=== PATIENT | female | born 1985 | race Caucasian/White ===

== ENCOUNTER 2020-06-23 12:37 | Emergency (ER) | payer MEDICAID, OTHER ==
[~2020-06-23] VITALS: Ht 157.5 cm; Wt 90.0 kg
[~2020-06-23 12:37] MED LIST: PREN-88 PO
[2020-06-23] MEDS ORDERED: IBUPROFEN 600MG TABLET PO STA (12:59)
[2020-06-23 13:13] VITALS: BP 135/97
== END 2020-06-23 13:53 | disposition home or self-care (01) ==
LOC: ER 12:37
DX: K08.89 Other specified disorders of teeth and supporting structures (principal); K02.9 Dental caries, unspecified
CPT/HCPCS: 99283

== ENCOUNTER 2020-11-03 15:08 | Emergency (ER) | payer MEDICAID, OTHER ==
[~2020-11-03] VITALS: Ht 157.5 cm; Wt 91.0 kg
[2020-11-03 15:14] VITALS: BP 113/60
[2020-11-03] MEDS ORDERED: ACETAMINOPHEN 325MG TABLET PO ONE (15:30)
[2020-11-03] MEDS ORDERED: SULF1TAB48 MT (15:35)
[2020-11-03] MEDS ORDERED: CEPH500T MT (15:35)
== END 2020-11-03 15:49 | disposition home or self-care (01) ==
LOC: ER 15:25
DX: L02.415 Cutaneous abscess of right lower limb (principal); Z86.73 Personal history of transient ischemic attack (TIA), and cerebral infarction without residual deficits; Z98.890 Other specified postprocedural states
CPT/HCPCS: 99283

== ENCOUNTER 2020-11-10 21:30 | Emergency (ER) | payer OTHER ==
[~2020-11-10] VITALS: Ht 157.5 cm; Wt 87.7 kg
[~2020-11-10 21:30] MED LIST changes: +CEPH500T MT; -PREN-88 PO; +SULF1TAB48 MT
[2020-11-10 22:17] LABS: BASOPHILS % 0.8 % (0.0-2.0); EOSINOPHILS % 1.9 % (0.0-5.0); HEMATOCRIT. 38.1 % (36.0-48.0); HEMOGLOBIN. 13.2 g/dL (12.0-16.0); LYMPHOCYTES % 24.7 % (20.0-50.0); MEAN CORPUSCULAR HEMOGLOBIN 31.2 pg (28.0-32.0); MEAN CORPUSCULAR VOLUME 90.3 fL (81.0-99.0); MEAN PLATELET VOLUME 8.3 fl (7.4-10.4); MONOCYTES % 5.7 % (2.0-8.0); NEUTROPHILS % 66.9 % (40.0-76.0); PLATELET 336 x1000/uL (130-400); RED BLOOD CELL COUNT 4.22 mill/uL (4.2-5.4); RED CELL DISTRIBUTION WIDTH 15.5 % (11.6-14.6)
[2020-11-10 22:19] LABS: CHLORIDE 109 mEq/L (98-107)
[2020-11-10 22:24] LABS: HCG SCREEN NEGATIVE
[2020-11-11 00:28] VITALS: BP 115/58
== END 2020-11-11 00:27 | disposition home or self-care (01) ==
LOC: ER 21:30
DX: R20.2 Paresthesia of skin (principal); J45.909 Unspecified asthma, uncomplicated; Z86.73 Personal history of transient ischemic attack (TIA), and cerebral infarction without residual deficits
CPT/HCPCS: 36415; 80053; 84703; 85025; 93005; 99285

== ENCOUNTER 2022-01-16 22:41 | Emergency (ER) | payer MEDICAID, OTHER ==
[~2022-01-16] VITALS: Ht 157.5 cm; Wt 82.0 kg
[2022-01-16 23:10] VITALS: BP 116/57
[2022-01-17 00:56] LABS: CLARITY URINE CLEAR (CLEAR); COLOR URINE YELLOW (YELLOW); KETONES URINE NEGATIVE (NEGATIVE); LEUKOCYTE ESTERASE URINE NEGATIVE (NEGATIVE); NITRITE URINE NEGATIVE (NEGATIVE); OCCULT BLOOD URINE NEGATIVE (NEGATIVE); PROTEIN URINE NEGATIVE (NEGATIVE); SPECIFIC GRAVITY URINE 1.025 (1.005-1.030); UROBILINOGEN URINE 0.2 E.U./dL (0.2-1.0)
[2022-01-17 01:53] LABS: *BARBITURATES SCREEN URINE NEGATIVE (NEGATIVE); *BENZODIAZEPINES SCREEN URINE NEGATIVE (NEGATIVE); *COCAINE SCREEN URINE NEGATIVE (NEGATIVE); CANNABINOID URINE SCREEN NEGATIVE (NEGATIVE); METHADONE URINE SCREEN NEGATIVE (NEGATIVE); OPIATES URINE SCREEN NEGATIVE (NEGATIVE); PHENCYCLIDINE URINE SCREEN NEGATIVE (NEGATIVE)
[2022-01-17 02:06] LABS: *AMPHETAMINES SCREEN URINE PRESUMTIVE POSITIVE (NEGATIVE)
== END 2022-01-17 02:25 | disposition home or self-care (01) ==
LOC: ER 22:41
DX: F15.10 Other stimulant abuse, uncomplicated (principal); Z59.00 Homelessness unspecified; J45.909 Unspecified asthma, uncomplicated; Z86.73 Personal history of transient ischemic attack (TIA), and cerebral infarction without residual deficits; Z98.890 Other specified postprocedural states
CPT/HCPCS: 80305; 81003; 81025; 82962; 99283

== ENCOUNTER 2022-02-07 22:25 | Emergency (ER) | payer OTHER | END 2022-02-07 22:56 | disposition left against medical advice (07) | LOC: ER 22:25 | DX: Z53.21 Procedure and treatment not carried out due to patient leaving prior to being seen by health care provider (principal) ==

== ENCOUNTER 2022-04-21 03:39 | Emergency (ER) | payer OTHER ==
[~2022-04-21] VITALS: Ht 157.5 cm; Wt 78.4 kg
[2022-04-21 03:50] VITALS: BP 115/59
[2022-04-21] MEDS ORDERED: D-ME473S50 PO (14:58)
[2022-04-21] MEDS ORDERED: NAPR-681 PO (14:58)
== END 2022-04-21 07:00 | disposition left against medical advice (07) ==
LOC: ER 03:39
DX: Z53.21 Procedure and treatment not carried out due to patient leaving prior to being seen by health care provider (principal)

== ENCOUNTER 2022-04-21 09:16 | Emergency (ER) | payer MEDICAID, OTHER ==
[~2022-04-21] VITALS: Ht 165.1 cm; Wt 78.0 kg
[2022-04-21 09:30] VITALS: BP 111/75
[2022-04-21] MEDS ORDERED: IBUPROFEN 600MG TABLET PO STA (11:04)
[2022-04-21] MEDS ORDERED: ONDANSETRON 4MG ODT PO STA (11:04)
[2022-04-21 12:04] LABS: BASOPHILS % 0.6 % (0.0-2.0); EOSINOPHILS % 0.9 % (0.0-5.0); HEMATOCRIT. 39.5 % (36.0-48.0); HEMOGLOBIN. 13.3 g/dL (12.0-16.0); LYMPHOCYTES % 17.6 % (20.0-50.0); MEAN CORPUSCULAR HEMOGLOBIN 30.3 pg (28.0-32.0); MEAN CORPUSCULAR VOLUME 90.3 fL (81.0-99.0); MEAN PLATELET VOLUME 7.5 fl (7.4-10.4); MONOCYTES % 6.2 % (2.0-8.0); NEUTROPHILS % 74.7 % (40.0-76.0); PLATELET 342 x1000/uL (130-400); RED BLOOD CELL COUNT 4.38 mill/uL (4.2-5.4); RED CELL DISTRIBUTION WIDTH 14.3 % (11.6-14.6)
[2022-04-21 12:16] LABS: CHLORIDE 105 mEq/L (98-107)
[2022-04-21 13:23] LABS: CLARITY URINE CLEAR (CLEAR); COLOR URINE YELLOW (YELLOW); KETONES URINE 3+ (NEGATIVE); LEUKOCYTE ESTERASE URINE NEGATIVE (NEGATIVE); NITRITE URINE NEGATIVE (NEGATIVE); OCCULT BLOOD URINE 1+ (NEGATIVE); PH URINE 5.5 (4.5-8.0); PROTEIN URINE TRACE (NEGATIVE); SPECIFIC GRAVITY URINE 1.032 (1.005-1.030)
[2022-04-21] MEDS ORDERED: NAPR-681 PO (14:58)
[2022-04-21] MEDS ORDERED: D-ME473S50 PO (14:58)
== END 2022-04-21 15:26 | disposition home or self-care (01) ==
LOC: ER 09:16
DX: B34.9 Viral infection, unspecified (principal); Z20.822 Contact with and (suspected) exposure to COVID-19
CPT/HCPCS: 36415; 71045; 80053; 81003; 81025; 85025; 87426; 99284; Q0162

== ENCOUNTER 2022-07-15 01:00 | Emergency (ER) | payer MEDICAID, OTHER ==
[~2022-07-15] VITALS: Ht 157.5 cm; Wt 82.0 kg
[~2022-07-15 01:00] MED LIST changes: +D-ME473S50 PO; +NAPR-681 PO
[2022-07-15 01:05] VITALS: BP 112/49
[2022-07-15 02:04] LABS: BASOPHILS % 0.8 % (0.0-2.0); EOSINOPHILS % 2.2 % (0.0-5.0); HEMATOCRIT. 37.8 % (36.0-48.0); HEMOGLOBIN. 12.7 g/dL (12.0-16.0); LYMPHOCYTES % 27.7 % (20.0-50.0); MEAN CORPUSCULAR HEMOGLOBIN 30.3 pg (28.0-32.0); MEAN CORPUSCULAR VOLUME 90.6 fL (81.0-99.0); MEAN PLATELET VOLUME 7.5 fl (7.4-10.4); MONOCYTES % 6.9 % (2.0-8.0); NEUTROPHILS % 62.4 % (40.0-76.0); PLATELET 316 x1000/uL (130-400); RED BLOOD CELL COUNT 4.17 mill/uL (4.2-5.4); RED CELL DISTRIBUTION WIDTH 14.7 % (11.6-14.6)
[2022-07-15 02:11] LABS: CHLORIDE 108 mEq/L (98-107)
[2022-07-15] MEDS ORDERED: TOPUD PO (11:12)
== END 2022-07-15 03:00 | disposition home or self-care (01) ==
LOC: ER 01:00
DX: R07.9 Chest pain, unspecified (principal)
CPT/HCPCS: 36415; 71045; 80053; 84484; 85025; 93005; 99285

== ENCOUNTER 2022-07-15 05:09 | Emergency (ER) | payer MEDICAID, OTHER ==
[~2022-07-15] VITALS: Ht 162.6 cm; Wt 82.0 kg
[2022-07-15 05:56] VITALS: BP 117/69
[2022-07-15 10:08] LABS: BASOPHILS % 1.7 % (0.0-2.0); EOSINOPHILS % 2.3 % (0.0-5.0); HEMATOCRIT. 41.6 % (36.0-48.0); HEMOGLOBIN. 13.5 g/dL (12.0-16.0); LYMPHOCYTES % 26.5 % (20.0-50.0); MEAN CORPUSCULAR HEMOGLOBIN 29.7 pg (28.0-32.0); MEAN CORPUSCULAR VOLUME 91.9 fL (81.0-99.0); MEAN PLATELET VOLUME 7.9 fl (7.4-10.4); MONOCYTES % 5.2 % (2.0-8.0); NEUTROPHILS % 64.3 % (40.0-76.0); PLATELET 285 x1000/uL (130-400); RED BLOOD CELL COUNT 4.53 mill/uL (4.2-5.4); RED CELL DISTRIBUTION WIDTH 14.7 % (11.6-14.6)
[2022-07-15 10:14] LABS: CHLORIDE 107 mEq/L (98-107)
[2022-07-15] MEDS ORDERED: TOPUD PO (11:12)
== END 2022-07-15 12:35 | disposition home or self-care (01) ==
LOC: ER 05:09
DX: R07.9 Chest pain, unspecified (principal)
CPT/HCPCS: 36415; 80053; 83880; 84484; 85025; 99283

== ENCOUNTER 2022-08-20 00:44 | Emergency (ER) | payer MEDICAID, OTHER ==
[~2022-08-20] VITALS: Ht 157.5 cm; Wt 81.2 kg
[~2022-08-20 00:44] MED LIST changes: +TOPUD PO
[2022-08-20 00:55] VITALS: BP 124/59
[2022-08-21 12:56] LABS: BASOPHILS % 0.6 % (0.0-2.0); EOSINOPHILS % 1.3 % (0.0-5.0); HEMATOCRIT. 39.9 % (36.0-48.0); LYMPHOCYTES % 24.6 % (20.0-50.0); MEAN CORPUSCULAR HEMOGLOBIN 29.6 pg (28.0-32.0); MEAN CORPUSCULAR VOLUME 91.3 fL (81.0-99.0); MEAN PLATELET VOLUME 7.2 fl (7.4-10.4); MONOCYTES % 6.1 % (2.0-8.0); NEUTROPHILS % 67.4 % (40.0-76.0); PLATELET 292 x1000/uL (130-400); RED BLOOD CELL COUNT 4.37 mill/uL (4.2-5.4); RED CELL DISTRIBUTION WIDTH 14.4 % (11.6-14.6)
[2022-08-21 12:59] LABS: CHLORIDE 109 mEq/L (98-107)
== END 2022-08-21 15:42 | disposition home or self-care (01) ==
LOC: ER 00:44
DX: R53.83 Other fatigue (principal); E86.0 Dehydration; D64.9 Anemia, unspecified; E87.8 Other disorders of electrolyte and fluid balance, not elsewhere classified; Z98.890 Other specified postprocedural states
CPT/HCPCS: 36415; 80048; 81025; 85025; 99283

== ENCOUNTER 2022-12-19 09:37 | Emergency (ER) | payer MEDICAID ==
[~2022-12-19] VITALS: Ht 157.5 cm; Wt 72.7 kg
[2022-12-19 09:51] VITALS: BP 110/57; RESP 18; TEMP 98.7; O2SAT 98
[2022-12-19 10:03] VITALS: PULSE 93
== END 2022-12-19 15:56 | disposition left against medical advice (07) ==
LOC: ER 09:37
DX: Z53.21 Procedure and treatment not carried out due to patient leaving prior to being seen by health care provider (principal)
CPT/HCPCS: 99281

== ENCOUNTER 2022-12-25 19:30 | Emergency (ER) | payer MEDICAID, OTHER ==
[~2022-12-25] VITALS: Ht 157.5 cm; Wt 82.0 kg
[2022-12-25 20:06] VITALS: BP 126/64; O2SAT 100
[2022-12-25 20:56] LABS: BASOPHILS % 0.4 % (0.0-2.0); EOSINOPHILS % 0.6 % (0.0-5.0); HEMATOCRIT. 35.4 % (36.0-48.0); HEMOGLOBIN. 11.6 g/dL (12.0-16.0); LYMPHOCYTES % 15.2 % (20.0-50.0); MEAN CORPUSCULAR HEMOGLOBIN 30.5 pg (28.0-32.0); MEAN CORPUSCULAR VOLUME 93.2 fL (81.0-99.0); MEAN PLATELET VOLUME 6.9 fl (7.4-10.4); MONOCYTES % 5.5 % (2.0-8.0); NEUTROPHILS % 78.3 % (40.0-76.0); PLATELET 377 x1000/uL (130-400); RED CELL DISTRIBUTION WIDTH 13.3 % (11.6-14.6)
[2022-12-25 21:03] LABS: CHLORIDE 107 mEq/L (98-107)
[2022-12-25 21:09] LABS: HCG SCREEN NEGATIVE
[2022-12-26] MEDS ORDERED: LIDOCAINE HCL 1% 20ML VIAL (Pyxis) INJ INFIL ONE (03:15)
[2022-12-26] MEDS ORDERED: CEFTRIAXONE SODIUM 500 MG/VIAL IM ONE (03:15)
[2022-12-26] MEDS ORDERED: DOXY100C5 MT (03:40)
[2022-12-26] MEDS ORDERED: METR-167 MT (03:40)
[2022-12-26 03:52] VITALS: PULSE 72; RESP 18; TEMP 98.7
[2022-12-26 04:15] LABS: CLARITY URINE CLEAR (CLEAR); COLOR URINE YELLOW (YELLOW); KETONES URINE NEGATIVE (NEGATIVE); LEUKOCYTE ESTERASE URINE NEGATIVE (NEGATIVE); NITRITE URINE NEGATIVE (NEGATIVE); OCCULT BLOOD URINE 1+ (NEGATIVE); PROTEIN URINE NEGATIVE (NEGATIVE); UROBILINOGEN URINE 0.2 E.U./dL (0.2-1.0)
== END 2022-12-26 03:53 | disposition home or self-care (01) ==
LOC: ER 19:30
DX: N93.8 Other specified abnormal uterine and vaginal bleeding (principal); N70.93 Salpingitis and oophoritis, unspecified; J45.909 Unspecified asthma, uncomplicated; Z98.890 Other specified postprocedural states; Z79.899 Other long term (current) drug therapy
CPT/HCPCS: 99285; 80053; 81025; 84703; 85025; 86850; 86900; 86901; 36415; 76830; 76856; 81003; 96372; J0696

== ENCOUNTER 2022-12-30 01:10 | Emergency (ER) | payer MEDICAID ==
[~2022-12-30] VITALS: Ht 157.5 cm; Wt 80.0 kg
[~2022-12-30 01:10] MED LIST changes: +DOXY100C5 MT; +METR-167 MT
[2022-12-30 02:19] VITALS: BP 138/87; RESP 14; TEMP 98.2; O2SAT 99
[2022-12-30 02:25] VITALS: PULSE 69
== END 2022-12-30 04:05 | disposition left against medical advice (07) ==
LOC: ER 01:10
DX: Z53.21 Procedure and treatment not carried out due to patient leaving prior to being seen by health care provider (principal); M79.671 Pain in right foot; J45.909 Unspecified asthma, uncomplicated; Z98.890 Other specified postprocedural states
CPT/HCPCS: 81025; 99281

== ENCOUNTER 2023-04-14 22:16 | Emergency (ER) | payer MEDICAID ==
[~2023-04-14] VITALS: Ht 157.5 cm; Wt 77.6 kg
[2023-04-14 22:27] VITALS: BP 124/76; TEMP 98.4; O2SAT 98
[2023-04-14 22:34] VITALS: PULSE 85; RESP 20
== END 2023-04-14 23:06 | disposition home or self-care (01) ==
LOC: ER 22:16
DX: K62.89 Other specified diseases of anus and rectum (principal); J45.909 Unspecified asthma, uncomplicated; Z98.890 Other specified postprocedural states
CPT/HCPCS: 99281

== ENCOUNTER 2023-05-02 10:01 | Emergency (ER) | payer MEDICAID ==
[~2023-05-02] VITALS: Ht 157.5 cm; Wt 74.9 kg
[2023-05-02 10:14] VITALS: O2SAT 100
[2023-05-02 13:04] LABS: CLARITY URINE CLEAR (CLEAR); COLOR URINE YELLOW (YELLOW); GLUCOSE URINE NEGATIVE (NEGATIVE); KETONES URINE TRACE (NEGATIVE); LEUKOCYTE ESTERASE URINE NEGATIVE (NEGATIVE); NITRITE URINE NEGATIVE (NEGATIVE); OCCULT BLOOD URINE NEGATIVE (NEGATIVE); PH URINE 5.5 (4.5-8.0); PROTEIN URINE NEGATIVE (NEGATIVE); SPECIFIC GRAVITY URINE 1.034 (1.005-1.030); UROBILINOGEN URINE 0.2 E.U./dL (0.2-1.0)
[2023-05-02] MEDS ORDERED: TOPUD MT (13:04)
[2023-05-02 13:26] VITALS: BP 146/68; PULSE 69; RESP 18; TEMP 98.8
== END 2023-05-02 13:27 | disposition home or self-care (01) ==
LOC: ER 10:01
DX: Z32.02 Encounter for pregnancy test, result negative (principal)
CPT/HCPCS: 81003; 81025; 99283

== ENCOUNTER 2023-07-18 23:56 | Emergency (ER) | payer MEDICAID ==
[~2023-07-18] VITALS: Ht 157.5 cm; Wt 77.0 kg
[~2023-07-18 23:56] MED LIST changes: +TOPUD MT
[2023-07-19 00:20] VITALS: TEMP 98; O2SAT 98
[2023-07-19 02:38] LABS: BASOPHILS % 1.2 % (0.0-2.0); EOSINOPHILS % 1.9 % (0.0-5.0); HEMATOCRIT. 37.3 % (36.0-48.0); HEMOGLOBIN. 12.6 g/dL (12.0-16.0); LYMPHOCYTES % 30.1 % (20.0-50.0); MEAN CORPUSCULAR HEMOGLOBIN 30.7 pg (28.0-32.0); MEAN CORPUSCULAR HGB CONC 33.8 g/dL (31.0-37.0); MEAN PLATELET VOLUME 7.4 fl (7.4-10.4); NEUTROPHILS % 59.8 % (40.0-76.0); PLATELET 333 x1000/uL (130-400); RED CELL DISTRIBUTION WIDTH 15.2 % (11.6-14.6)
[2023-07-19 02:56] LABS: ALANINE AMINOTRANSFERASE 11 IU/L (10-49); ALBUMIN 4.9 g/dL (3.2-4.8); ASPARTATE AMINOTRANSFERASE 18 IU/L (<34); BILIRUBIN TOTAL 0.3 mg/dL (0.1-1.0); CALCIUM 9.9 mg/dL (8.7-10.4); CARBON DIOXIDE 28 mEq/L (21-32); CHLORIDE 105 mEq/L (98-107); CREATININE 0.5 mg/dL (0.6-1.0); GLUCOSE 92 mg/dL (70-105); PROTEIN TOTAL 8.1 g/dL (6.0-8.3); SODIUM 138 mEq/L (136-145); UREA NITROGEN BLOOD 10 mg/dL (9-23)
[2023-07-19 03:00] LABS: B-HCG QUANTITATIVE < 1 mIU/mL (<3)
[2023-07-19 06:23] VITALS: BP 133/70; PULSE 75; RESP 20
== END 2023-07-19 06:26 | disposition home or self-care (01) ==
LOC: ER 23:56
DX: O26.851 Spotting complicating pregnancy, first trimester (principal); Z3A.01 Less than 8 weeks gestation of pregnancy
CPT/HCPCS: 99284; 80053; 84702; 85025; 86850; 86900; 86901; 36415; 76830; 76856; Z7610 ×2

== ENCOUNTER 2023-10-22 00:03 | Emergency (ER) | payer MEDICAID ==
[~2023-10-22] VITALS: Ht 157.5 cm; Wt 75.8 kg
[2023-10-22 00:30] VITALS: BP 113/50; PULSE 71; RESP 16; TEMP 98.6; O2SAT 100
[2023-10-22 00:56] LABS: BASOPHILS % 0.8 % (0.0-2.0); EOSINOPHILS % 1.9 % (0.0-5.0); HEMATOCRIT. 34.8 % (36.0-48.0); HEMOGLOBIN. 11.7 g/dL (12.0-16.0); MEAN CORPUSCULAR HEMOGLOBIN 30.9 pg (28.0-32.0); MEAN CORPUSCULAR HGB CONC 33.5 g/dL (31.0-37.0); MEAN CORPUSCULAR VOLUME 92.3 fL (81.0-99.0); MEAN PLATELET VOLUME 7.3 fl (7.4-10.4); MONOCYTES % 6.5 % (2.0-8.0); NEUTROPHILS % 61.8 % (40.0-76.0); PLATELET 348 x1000/uL (130-400); RED BLOOD CELL COUNT 3.77 mill/uL (4.2-5.4); RED CELL DISTRIBUTION WIDTH 14.6 % (11.6-14.6); WHITE BLOOD COUNT 5.9 x1000/uL (4.5-11.0)
[2023-10-22 01:07] LABS: CHLORIDE 106 mEq/L (98-107); POTASSIUM 3.7 mEq/L (3.5-5.1); SODIUM 138 mEq/L (136-145)
[2023-10-22 01:08] LABS: CALCIUM 9.7 mg/dL (8.7-10.4); CARBON DIOXIDE 27 mEq/L (21-32)
[2023-10-22 01:13] LABS: CREATININE 0.6 mg/dL (0.6-1.0); GLUCOSE 90 mg/dL (70-105); UREA NITROGEN BLOOD 15 mg/dL (9-23)
[2023-10-22 01:15] LABS: ACETAMINOPHEN < 2 ug/mL (10-30)
[2023-10-22 01:41] LABS: B-HCG QUANTITATIVE 2 mIU/mL (<3); ETHANOL BLOOD < 10 mg/dL (<10)
== END 2023-10-22 03:16 | disposition home or self-care (01) ==
LOC: ER 00:14
DX: B34.9 Viral infection, unspecified (principal); Z20.822 Contact with and (suspected) exposure to COVID-19
CPT/HCPCS: 36415; 76830; 76856; 80048; 80307; 80320; 80329; 81025; 84702; 85025; 86850; 86900; 87426; 99284; G0480

== ENCOUNTER 2024-04-27 11:17 | Emergency (ER) | payer MEDICAID ==
[~2024-04-27] VITALS: Ht 157.5 cm; Wt 77.0 kg
[2024-04-27 11:22] VITALS: TEMP 97.9; O2SAT 100
[2024-04-27] MEDS: CEFTRIAXONE SODIUM 500MG VIAL IM ONE (12:02)
[2024-04-27 12:30] LABS: CLARITY URINE CLEAR (CLEAR); COLOR URINE YELLOW (YELLOW); GLUCOSE URINE NEGATIVE (NEGATIVE); KETONES URINE NEGATIVE (NEGATIVE); LEUKOCYTE ESTERASE URINE 2+ (NEGATIVE); NITRITE URINE NEGATIVE (NEGATIVE); OCCULT BLOOD URINE NEGATIVE (NEGATIVE); PROTEIN URINE NEGATIVE (NEGATIVE); SPECIFIC GRAVITY URINE 1.023 (1.005-1.030)
[2024-04-27 12:47] LABS: MUCUS URINE TRACE /lpf (< = 2+); SQUAMOUS EPITHELIAL CELL URINE 1+ /lpf (RARE/1+)
[2024-04-27 12:48] LABS: BACTERIA URINE 1+
[2024-04-27 12:49] LABS: WBC URINE 0-2 /hpf (0-2)
[2024-04-27] MEDS ORDERED: DOXY100C5 MT (13:03)
[2024-04-27] MEDS ORDERED: METR-167 MT (13:03)
[2024-04-27 13:46] VITALS: BP 140/69; PULSE 71; RESP 19; O2SAT 100
[2024-04-30 06:11] LABS: CHLAMYDIA TRACHOMATIS NAA Negative (Negative); NEISSERIA GONORRHOEAE NAA Negative (Negative)
== END 2024-04-27 13:47 | disposition home or self-care (01) ==
LOC: ER 11:17
DX: N76.0 Acute vaginitis (principal); B96.89 Other specified bacterial agents as the cause of diseases classified elsewhere; J45.909 Unspecified asthma, uncomplicated; Z79.899 Other long term (current) drug therapy
CPT/HCPCS: 87491; 87591; 81003; 81025; 96372; 99283; J0696; Z7610

== ENCOUNTER 2024-05-03 08:06 | Emergency (ER) | payer MEDICAID ==
[~2024-05-03] VITALS: Ht 157.5 cm; Wt 77.1 kg
[2024-05-03 08:10] VITALS: O2SAT 100
[2024-05-03 08:47] LABS: GLUCOSE URINE NEGATIVE (NEGATIVE); KETONES URINE TRACE (NEGATIVE)
[2024-05-03 08:56] LABS: BASOPHILS % 0.5 % (0.0-2.0); EOSINOPHILS % 0.9 % (0.0-5.0); HEMOGLOBIN. 12.5 g/dL (12.0-16.0); LYMPHOCYTES % 20.3 % (20.0-50.0); MEAN CORPUSCULAR HEMOGLOBIN 31.1 pg (28.0-32.0); MEAN CORPUSCULAR HGB CONC 33.9 g/dL (31.0-37.0); MEAN CORPUSCULAR VOLUME 91.8 fL (81.0-99.0); MEAN PLATELET VOLUME 6.9 fl (7.4-10.4); MONOCYTES % 5.1 % (2.0-8.0); NEUTROPHILS % 73.2 % (40.0-76.0); PLATELET 369 x1000/uL (130-400); RED BLOOD CELL COUNT 4.03 mill/uL (4.2-5.4); RED CELL DISTRIBUTION WIDTH 14.7 % (11.6-14.6); WHITE BLOOD COUNT 7.4 x1000/uL (4.5-11.0)
[2024-05-03 09:05] LABS: CLARITY URINE CLEAR (CLEAR); COLOR URINE YELLOW (YELLOW); PROTEIN URINE TRACE (NEGATIVE); SPECIFIC GRAVITY URINE 1.025 (1.005-1.030)
[2024-05-03 09:06] LABS: LEUKOCYTE ESTERASE URINE 1+ (NEGATIVE); NITRITE URINE NEGATIVE (NEGATIVE); OCCULT BLOOD URINE NEGATIVE (NEGATIVE)
[2024-05-03 09:08] LABS: BACTERIA URINE FEW; RBC URINE 0-2 /hpf (0-2); SQUAMOUS EPITHELIAL CELL URINE 1+ /lpf (RARE/1+); WBC URINE 0-2 /hpf (0-2); YEAST URINE NONE SEEN
[2024-05-03 09:09] LABS: CHLORIDE 103 mEq/L (98-107); POTASSIUM 3.6 mEq/L (3.5-5.1); SODIUM 137 mEq/L (136-145)
[2024-05-03 09:10] LABS: CALCIUM 9.9 mg/dL (8.7-10.4); CARBON DIOXIDE 29 mEq/L (21-32)
[2024-05-03 09:15] LABS: CREATININE 0.6 mg/dL (0.6-1.0); GLUCOSE 94 mg/dL (70-105); UREA NITROGEN BLOOD 9 mg/dL (9-23)
[2024-05-03 09:38] LABS: TROPONIN I HIGH SENSITIVITY < 4 ng/L (3.0-34)
[2024-05-03 10:12] LABS: HCG SCREEN NEGATIVE
[2024-05-03 11:11] VITALS: BP 145/78; PULSE 77; RESP 14; TEMP 36.72516; O2SAT 100
== END 2024-05-03 11:14 | disposition home or self-care (01) ==
LOC: ER 08:06
DX: R07.89 Other chest pain (principal); R42 Dizziness and giddiness; J45.909 Unspecified asthma, uncomplicated; Z79.899 Other long term (current) drug therapy
CPT/HCPCS: 36415; 71045; 80048; 81003; 81025; 84484; 84703; 85025; 93005; 99285

== ENCOUNTER 2024-05-25 22:54 | Emergency (ER) | payer MEDICAID ==
[~2024-05-25] VITALS: Ht 157.5 cm; Wt 82.0 kg
[2024-05-25 22:59] VITALS: BP 123/66; RESP 18; TEMP 98; O2SAT 98
[2024-05-25 23:02] VITALS: PULSE 88; O2SAT 100
== END 2024-05-26 01:03 | disposition home or self-care (01) ==
LOC: ER 22:54
DX: Z32.02 Encounter for pregnancy test, result negative (principal); J45.909 Unspecified asthma, uncomplicated; Z98.890 Other specified postprocedural states
CPT/HCPCS: 81025; 99282

== ENCOUNTER 2024-06-04 01:20 | Emergency (ER) | payer MEDICAID ==
[~2024-06-04] VITALS: Ht 157.5 cm; Wt 81.0 kg
[2024-06-04 02:00] VITALS: BP 138/50; PULSE 84; RESP 16; TEMP 98.2; O2SAT 100
[2024-06-04] MEDS: CEFTRIAXONE SODIUM 500MG VIAL IM ONE (02:15)
[2024-06-04 05:16] LABS: CLARITY URINE CLEAR (CLEAR); COLOR URINE DARK YELLOW (YELLOW); GLUCOSE URINE NEGATIVE (NEGATIVE); KETONES URINE 2+ (NEGATIVE); LEUKOCYTE ESTERASE URINE 2+ (NEGATIVE); NITRITE URINE NEGATIVE (NEGATIVE); OCCULT BLOOD URINE NEGATIVE (NEGATIVE); PH URINE 5.5 (4.5-8.0); PROTEIN URINE TRACE (NEGATIVE); SPECIFIC GRAVITY URINE 1.034 (1.005-1.030)
[2024-06-04] MEDS ORDERED: CEPH500T MT (05:29)
[2024-06-04] MEDS: CEFTRIAXONE SODIUM 500MG VIAL IM NR (06:15)
[2024-06-04 07:05] LABS: SQUAMOUS EPITHELIAL CELL URINE 2+ /lpf (RARE/1+)
[2024-06-04 07:10] LABS: BACTERIA URINE TRACE
[2024-06-07 04:07] LABS: CHLAMYDIA TRACHOMATIS NAA Negative (Negative); NEISSERIA GONORRHOEAE NAA Negative (Negative)
== END 2024-06-04 03:50 | disposition home or self-care (01) ==
LOC: ER 01:20
DX: N76.0 Acute vaginitis (principal); B96.89 Other specified bacterial agents as the cause of diseases classified elsewhere; J45.909 Unspecified asthma, uncomplicated; Z86.73 Personal history of transient ischemic attack (TIA), and cerebral infarction without residual deficits; Z98.890 Other specified postprocedural states
CPT/HCPCS: 99283; 87491; 87591; 81003; 87086; 96372; J0696

== ENCOUNTER 2024-08-06 06:54 | Emergency (ER) | payer MEDICAID ==
[~2024-08-06] VITALS: Ht 157.5 cm; Wt 76.4 kg
[2024-08-06 06:58] VITALS: O2SAT 99
[2024-08-06 07:36] LABS: BASOPHILS % 0.5 % (0.0-2.0); EOSINOPHILS % 1.1 % (0.0-5.0); HEMATOCRIT. 38.2 % (36.0-48.0); HEMOGLOBIN. 12.6 g/dL (12.0-16.0); LYMPHOCYTES % 17.5 % (20.0-50.0); MEAN CORPUSCULAR HEMOGLOBIN 29.5 pg (28.0-32.0); MEAN CORPUSCULAR HGB CONC 32.9 g/dL (31.0-37.0); MEAN CORPUSCULAR VOLUME 89.7 fL (81.0-99.0); MEAN PLATELET VOLUME 7.2 fl (7.4-10.4); MONOCYTES % 5.4 % (2.0-8.0); NEUTROPHILS % 75.5 % (40.0-76.0); PLATELET 386 x1000/uL (130-400); RED BLOOD CELL COUNT 4.25 mill/uL (4.2-5.4); RED CELL DISTRIBUTION WIDTH 15.2 % (11.6-14.6); WHITE BLOOD COUNT 7.1 x1000/uL (4.5-11.0)
[2024-08-06 07:44] LABS: CHLORIDE 105 mEq/L (98-107); POTASSIUM 3.8 mEq/L (3.5-5.1); SODIUM 139 mEq/L (136-145)
[2024-08-06 07:45] LABS: CALCIUM 9.7 mg/dL (8.7-10.4); CARBON DIOXIDE 27 mEq/L (21-32)
[2024-08-06 07:50] LABS: CREATININE 0.5 mg/dL (0.6-1.0); GLUCOSE 105 mg/dL (70-105); UREA NITROGEN BLOOD 17 mg/dL (9-23)
[2024-08-06 07:52] LABS: ALANINE AMINOTRANSFERASE 14 IU/L (10-49); ALBUMIN 4.6 g/dL (3.2-4.8); ASPARTATE AMINOTRANSFERASE 18 IU/L (<34)
[2024-08-06 07:53] LABS: BILIRUBIN TOTAL 0.3 mg/dL (0.1-1.0); PROTEIN TOTAL 8.3 g/dL (6.0-8.3)
[2024-08-06 08:13] LABS: BILIRUBIN DIRECT < 0.1 mg/dL (<=3.0)
[2024-08-06] MEDS: MECLIZINE 25MG TABLET PO ONE (08:25)
[2024-08-06] MEDS: ONDANSETRON 4MG ODT PO ONE (08:25)
[2024-08-06 08:33] LABS: CLARITY URINE CLOUDY (CLEAR); COLOR URINE YELLOW (YELLOW); GLUCOSE URINE NEGATIVE (NEGATIVE); KETONES URINE TRACE (NEGATIVE); LEUKOCYTE ESTERASE URINE TRACE (NEGATIVE); NITRITE URINE NEGATIVE (NEGATIVE); OCCULT BLOOD URINE NEGATIVE (NEGATIVE); PROTEIN URINE NEGATIVE (NEGATIVE); SPECIFIC GRAVITY URINE 1.036 (1.005-1.030); UROBILINOGEN URINE 0.2 E.U./dL (0.2-1.0)
[2024-08-06 09:00] LABS: MUCUS URINE 2+ /lpf (< = 2+)
[2024-08-06 09:01] LABS: SQUAMOUS EPITHELIAL CELL URINE 2+ /lpf (RARE/1+)
[2024-08-06 09:02] LABS: RBC URINE NONE SEEN /hpf (0-2); WBC URINE 0-2 /hpf (0-2)
[2024-08-06 09:05] LABS: BACTERIA URINE TRACE
[2024-08-06] MEDS ORDERED: MECL-299 MT (09:20)
[2024-08-06 09:48] VITALS: BP 127/63; PULSE 88; RESP 18; TEMP 36.8; O2SAT 100
== END 2024-08-06 09:48 | disposition home or self-care (01) ==
LOC: ER 07:05
DX: R42 Dizziness and giddiness (principal); J45.909 Unspecified asthma, uncomplicated; Z86.73 Personal history of transient ischemic attack (TIA), and cerebral infarction without residual deficits; Z98.890 Other specified postprocedural states
CPT/HCPCS: 99284; 80076; 80048; 81003; 81025; 83690; 85025; 86850; 86900; 86901; 36415; 93005; J8597; Q0162

== ENCOUNTER 2024-12-11 02:56 | Emergency (ER) | payer MEDICAID ==
[~2024-12-11] VITALS: Ht 157.5 cm; Wt 72.5 kg
[~2024-12-11 02:56] MED LIST changes: +MECL-299 MT
[2024-12-11 03:09] VITALS: O2SAT 99
[2024-12-11 05:05] LABS: BASOPHILS % 0.7 % (0.0-2.0); EOSINOPHILS % 2.4 % (0.0-5.0); HEMATOCRIT. 37.2 % (36.0-48.0); HEMOGLOBIN. 12.2 g/dL (12.0-16.0); LYMPHOCYTES % 26.3 % (20.0-50.0); MEAN PLATELET VOLUME 7.3 fl (7.4-10.4); MONOCYTES % 5.2 % (2.0-8.0); NEUTROPHILS % 65.4 % (40.0-76.0); PLATELET 372 x1000/uL (130-400); RED BLOOD CELL COUNT 4.14 mill/uL (4.2-5.4); RED CELL DISTRIBUTION WIDTH 15.1 % (11.6-14.6)
[2024-12-11 05:15] LABS: CREATININE 0.7 mg/dL (0.6-1.0); UREA NITROGEN BLOOD 19 mg/dL (9-23)
[2024-12-11 05:21] LABS: B-HCG QUANTITATIVE < 1 mIU/mL (<6)
[2024-12-11 06:59] VITALS: BP 106/52; PULSE 73; RESP 16; TEMP 36.5; O2SAT 100
[2024-12-11 07:40] LABS: CLARITY URINE CLEAR (CLEAR); COLOR URINE YELLOW (YELLOW); GLUCOSE URINE NEGATIVE (NEGATIVE); KETONES URINE NEGATIVE (NEGATIVE); LEUKOCYTE ESTERASE URINE TRACE (NEGATIVE); NITRITE URINE NEGATIVE (NEGATIVE); OCCULT BLOOD URINE TRACE (NEGATIVE); PH URINE 8.5 (4.5-8.0); PROTEIN URINE NEGATIVE (NEGATIVE); SPECIFIC GRAVITY URINE 1.026 (1.005-1.030); UROBILINOGEN URINE 1.0 E.U./dL (0.2-1.0)
[2024-12-11 08:04] LABS: SQUAMOUS EPITHELIAL CELL URINE 1+ /lpf (RARE/1+)
[2024-12-11 08:06] LABS: BACTERIA URINE 1+; YEAST URINE NONE SEEN
[2024-12-11 08:16] LABS: *AMPHETAMINES SCREEN URINE PRESUMPTIVE POSITIVE (NEGATIVE); *BARBITURATES SCREEN URINE NEGATIVE (NEGATIVE); *BENZODIAZEPINES SCREEN URINE NEGATIVE (NEGATIVE); *COCAINE SCREEN URINE NEGATIVE (NEGATIVE); CANNABINOID URINE SCREEN NEGATIVE (NEGATIVE); METHADONE URINE SCREEN NEGATIVE (NEGATIVE); OPIATES URINE SCREEN NEGATIVE (NEGATIVE); PHENCYCLIDINE URINE SCREEN NEGATIVE (NEGATIVE)
[2024-12-11 08:17] LABS: ECSTASY MDMA SCREEN URINE NEGATIVE (NEGATIVE)
== END 2024-12-11 07:02 | disposition home or self-care (01) ==
LOC: ER 02:56
DX: T19.2XXA Foreign body in vulva and vagina, initial encounter (principal); J45.909 Unspecified asthma, uncomplicated; Z86.73 Personal history of transient ischemic attack (TIA), and cerebral infarction without residual deficits; Z79.899 Other long term (current) drug therapy; Z98.890 Other specified postprocedural states; W44.9XXA Unspecified foreign body entering into or through a natural orifice, initial encounter; Y93.89 Activity, other specified; Y92.89 Other specified places as the place of occurrence of the external cause; Y99.8 Other external cause status
CPT/HCPCS: 80305; 80048; 81003; 81025; 84702; 85025; 86850; 86900; 86901; 36415; 76830; 76856; 99284; Z7610

== ENCOUNTER 2024-12-17 23:37 | Inpatient (IN) | payer MEDICAID ==
[~2024-12-17] VITALS: Ht 157.5 cm; Wt 78.0 kg
[2024-12-18 04:26] LABS: BASOPHILS % 0.6 % (0.0-2.0); EOSINOPHILS % 1.3 % (0.0-5.0); HEMATOCRIT. 35.7 % (36.0-48.0); HEMOGLOBIN. 12.4 g/dL (12.0-16.0); LYMPHOCYTES % 26.0 % (20.0-50.0); MEAN PLATELET VOLUME 7.3 fl (7.4-10.4); MONOCYTES % 4.9 % (2.0-8.0); NEUTROPHILS % 67.2 % (40.0-76.0); PLATELET 328 x1000/uL (130-400); RED BLOOD CELL COUNT 4.00 mill/uL (4.2-5.4); RED CELL DISTRIBUTION WIDTH 15.1 % (11.6-14.6)
[2024-12-18] MEDS: KETOROLAC 30MG/ML VIAL IM ONE (04:30)
[2024-12-18 04:47] LABS: INR 0.9
[2024-12-18 04:48] LABS: HCG SCREEN NEGATIVE
[2024-12-18 04:57] LABS: CREATININE 0.6 mg/dL (0.6-1.0); UREA NITROGEN BLOOD 9 mg/dL (9-23)
[2024-12-18 09:52] VITALS: BP 98/59; PULSE 55; RESP 16; TEMP 36.4736
[2024-12-18] MEDS ORDERED: ONDANSETRON HCL 4MG/2ML INJ IV PRN (10:30)
[2024-12-18] MEDS ORDERED: ACETAMINOPHEN 325MG TABLET PO PRN (10:30)
[2024-12-18 12:00] VITALS: BP 119/56; PULSE 63; RESP 18; TEMP 36.5; O2SAT 99
[2024-12-18 12:06] LABS: CLARITY URINE CLOUDY (CLEAR); COLOR URINE YELLOW (YELLOW); GLUCOSE URINE NEGATIVE (NEGATIVE); KETONES URINE TRACE (NEGATIVE); LEUKOCYTE ESTERASE URINE 2+ (NEGATIVE); NITRITE URINE NEGATIVE (NEGATIVE); OCCULT BLOOD URINE NEGATIVE (NEGATIVE); PH URINE 7.0 (4.5-8.0); PROTEIN URINE 1+ (NEGATIVE); SPECIFIC GRAVITY URINE 1.023 (1.005-1.030); UROBILINOGEN URINE 0.2 E.U./dL (0.2-1.0)
[2024-12-18 12:51] LABS: BACTERIA URINE 4+; SQUAMOUS EPITHELIAL CELL URINE 1+ /lpf (RARE/1+)
[2024-12-18 12:52] LABS: MUCUS URINE TRACE /lpf (< = 2+); WBC URINE 50-100 /hpf (0-2)
[2024-12-18 12:53] LABS: RBC URINE 0-2 /hpf (0-2)
[2024-12-18] MEDS: AMPICILLIN SOD/SULBACTAM NA 3 G in SODIUM CHLORIDE 0.9% 100 ML IV SCH (13:30)
[2024-12-18 16:00] VITALS: BP 109/66; PULSE 72; RESP 20; TEMP 36.4; O2SAT 100
[2024-12-18 20:00] VITALS: BP 124/71; PULSE 64; RESP 17; TEMP 36.3; O2SAT 100
[2024-12-18] MEDS: KETOROLAC 30MG/ML VIAL IV PRN (21:16)
[2024-12-19] VITALS: BP 112/61; PULSE 65; RESP 20; TEMP 36.8; O2SAT 100
[2024-12-19 04:00] VITALS: BP 95/52; PULSE 75; RESP 18; TEMP 36.3; O2SAT 100
[2024-12-19 08:00] VITALS: BP 107/73; PULSE 73; RESP 15; TEMP 36.8; O2SAT 100
[2024-12-19] MEDS: POTASSIUM CHLORIDE 20MEQ TABLET SR PO SCH (11:22)
[2024-12-19 12:00] VITALS: BP 117/76; PULSE 62; RESP 18; TEMP 36.6; O2SAT 96
[2024-12-19] MEDS ORDERED: AMOX1TAB16 MT (12:46)
[2024-12-19 16:00] VITALS: BP 121/69; PULSE 74; RESP 16; TEMP 36.9; O2SAT 99
[2024-12-19 20:00] VITALS: BP 110/44; PULSE 72; RESP 18; TEMP 36.7; O2SAT 99
[2024-12-20] VITALS: BP 111/69; PULSE 84; RESP 19; TEMP 36.7; O2SAT 99
[2024-12-20 04:00] VITALS: BP 111/39; PULSE 77; RESP 17; TEMP 36.3; O2SAT 97
[2024-12-20] MEDS ORDERED: LEVO750T68 MT (07:39)
[2024-12-20 08:00] VITALS: BP 121/79; PULSE 86; RESP 17; TEMP 36.7; O2SAT 97
[2024-12-20 09:57] VITALS: BP 121/79; PULSE 86; TEMP 98.1; O2SAT 97
[2024-12-20 12:00] VITALS: BP 117/74; PULSE 82; RESP 17; TEMP 36.6; O2SAT 98
== END 2024-12-20 13:39 | disposition home or self-care (01) | DRG 383 ==
LOC: ER 23:37 → 8EST 12-18 07:34 → EDBEDREQ 12-18 07:35 → EDBEDREQTM 12-18 07:35 → ENRESERV 12-18 07:44
PROVIDERS: ADMIT Internal Medicine; ATTEND Internal Medicine
DX: L03.213 Periorbital cellulitis (principal); F15.90 Other stimulant use, unspecified, uncomplicated; N39.0 Urinary tract infection, site not specified; F17.210 Nicotine dependence, cigarettes, uncomplicated; J45.909 Unspecified asthma, uncomplicated
CPT/HCPCS: 36415; 70486; 80048; 81003; 84132; 84703; 85025; 87077; 99285; A4606; J0295; J1885; J7050

== ENCOUNTER 2025-02-06 21:34 | Emergency (ER) | payer MEDICAID ==
[~2025-02-06 21:34] MED LIST changes: -CEPH500T MT; -D-ME473S50 PO; -DOXY100C5 MT; +LEVO750T68 MT; -METR-167 MT; -SULF1TAB48 MT
[2025-02-06 22:11] VITALS: PULSE 68; RESP 18; O2SAT 99
== END 2025-02-07 00:02 | disposition left against medical advice (07) ==
LOC: ER 21:34
DX: Z00.00 Encounter for general adult medical examination without abnormal findings (principal); Z53.21 Procedure and treatment not carried out due to patient leaving prior to being seen by health care provider